=== PATIENT | female | born 1995 | race Caucasian/White ===

== ENCOUNTER 2020-09-08 06:14 | Emergency (ER) | payer OTHER ==
[~2020-09-08 06:14] MED LIST: COLACE 100MG C100 MG PO; IBUPROFEN600 MG PO; NORCO 5-325 TA1 EACH PO
== END 2020-09-08 09:16 | disposition home or self-care (01) ==
LOC: ER1 06:14
DX: U07.1 COVID-19 (principal); Z79.899 Other long term (current) drug therapy; F17.200 Nicotine dependence, unspecified, uncomplicated
CPT/HCPCS: 0240U; 87081; 87880; 96374; 96375; 96376; 99283; J1200; J1885; J2765; J7040